=== PATIENT | female | born 1975 | race Caucasian/White ===

== ENCOUNTER 2016-08-28 11:22 | Emergency (ER) | payer OTHER, MEDICAID ==
[2016-08-28] MEDS ORDERED: KETOROLAC TROMETHAMINE 60 MG/2 ML VIAL ONE (12:07)
--- NOTE | 2016-08-28 13:28 | ER NURSING DOCUMENTATION ---
Nurse's Notes [facility] Name:Mónica Rey Age:41 yrs Sex:Female :1975 Arrival Date:08/28/2016 Time:11:22 Bed3 Private MD: Diagnosis:Foreign Body in Vulva - Vagina;Dysmenorrhea Presentation: 08/28 11:31 Acuity: BASIL 3 lp 11:41 Presenting complaint: Patient states: Patient states that she is on her period and that lp her tampon has fallen apart when taking it out several times. Patient is having cramping and pain. Transition of care: Home. 11:41 Method Of Arrival: Private Vehicle lp Triage Assessment: 11:44 General: Appears in no apparent distress, Behavior is appropriate for age. Pain: lp Complains of pain in suprapubic area Pain currently is 6 out of 10 on a pain scale. EENT: No deficits noted. Neuro: No deficits noted. Cardiovascular: No deficits noted. Respiratory: No deficits noted. GI: No deficits noted. : No deficits noted. Derm: No deficits noted. Historical: - Allergies: Vicodin; - Home Meds: 1. None - PMHx: MYOCARDIAL INFARCTION; - PSHx: ; - Tetanus: < 10 years. - Ebola Screening: : Patient negative for fever greater than or equal to 101.5 degrees Fahrenheit, and additional compatible Ebola Virus Disease symptoms. Patient denies exposure to infectious person. Patient denies travel to an Ebola-affected area in the 21 days before illness onset. . - Immunization history: Flu Vaccine < 1 year. - Social history: Smoking status: Patient uses tobacco products, current every day smoker. Screenin:46 Infectious Disease Risk None. Abuse screen: Denies threats or abuse. Denies injuries lp from another. Nutritional screening: No deficits noted. Assessment: 11:45 GI: Abdomen is obese. lp Vital Signs: 11:45 BP 126 / 92; Pulse 108; Resp 16; Temp 97.2(TE); Pulse Ox 96% on R/A; Weight 83.91 kg; lp Height 5 ft. 2 in. (157.48 cm); Pain 6/10; 11:45 Body Mass Index 33.84 (83.91 kg, 157.48 cm) lp ED Course: 11:23 Patient arrived in ED. ds 11:31 Yolanda Serrano, RN is Primary Nurse. lp 11:31 Triage completed. lp 11:38 Anil Linn MD is Attending Physician. cd 11:[address] Linn notified. lp 11:46 Valuables Remains with patient Patient has correct armband on for positive lp identification. Bed in low position. Call light in reach. Side rails up X 1. 12:30 Assist Provider Assist provider with pelvic exam: Set up pelvic tray. Performed by Anil Linn MD Patient tolerated well. Administered Medications: 11:54 Drug: Toradol 60 mg; Route: IM; Site: right deltoid; 12:43 Follow up: Response: Pain is decreased Point of Care Testing: Urine Dip: 12:56 pH: 6.0; ; Specific [place]: 1.010; Ketones: Negative; Glucose: Negative; Protein: lp Negative; Leukocytes: Negative; Nitrite: Negative ; Blood: Moderate (++); Bilirubin: Negative ; Urobilinogen: Normal Outcome: 12:25 Discharge ordered by MD. cd 13:26 Discharged to home ambulatory. lp 13:26 Condition: good 13:26 Instructed on discharge instructions, follow up and referral plans. medication usage. 13:27 Patient left the ED. lp 08/29 14:22 Discharge F/U Call: Unable to reach: no answer st Signatures: Cally Whitley RN RN st Pavlish, Lena, GABINO RN lp Srot, Kylah, Reg Reg Anil Saldivar MD MD [facility], [facility]
--- NOTE | 2016-08-28 13:28 | ER PHYSICIAN DOCUMENTATION ---
Physician Documentation [facility] Name:Mónica Rey Age:41 yrs Sex:Female :1975 Arrival Date:08/28/2016 Time:11:22 Bed3 Private MD: Anil Saavedra Disposition: 08/28/16 12:25 Discharged to Home/Self Care. Impression: Foreign Body in Vulva - Vagina, Dysmenorrhea. - Condition is Good. - Discharge Instructions: DYSMENORRHEA, VAGINAL FOREIGN BODY, Removed (Adult). - Medical Reconciliation form form. - Follow up: Private Physician; When: 7 - 10 days; Reason: Recheck today's complaints, Continuance of care. - Problem is new. - Symptoms have improved. - Notes: Take Ibuprofen 600mg by mouth every 6 hours with food for cramping. Drink 2 - 3 quarts of water every day. HPI: 08/28 11:30 This 41 yrs old Female presents to ER via Private Vehicle with complaints of cd Vaginal Pain and possible retained partial tampon. 11:30 The patient presents with pelvic pain, that is located in/on the suprapubic area, the cd pain does not radiate, the pain is described as crampy, vaginal bleeding that is light. Onset: The symptoms/episode began/occurred acutely, yesterday. Associated signs and symptoms: Pertinent positives: cramping, vaginal bleeding, Pertinent negatives: fever, Abdominal pain or rigors. No rash. Severity of symptoms: At their worst the symptoms were mild, in the emergency department the symptoms are unchanged. Historical: - Allergies: Vicodin; - Home Meds: 1. None - PMHx: MYOCARDIAL INFARCTION; - PSHx: ; - Tetanus: < 10 years. - Ebola Screening: : Patient negative for fever greater than or equal to 101.5 degrees Fahrenheit, and additional compatible Ebola Virus Disease symptoms. Patient denies exposure to infectious person. Patient denies travel to an Ebola-affected area in the 21 days before illness onset. . - Immunization history: Flu Vaccine < 1 year. - Social history: Smoking status: Patient uses tobacco products, current every day smoker. ROS: 11:45 Positive for pelvic pain, vaginal bleeding, Negative for urinary symptoms, burning cd with urination, foul smelling urine, vaginal discharge, missed period. 11:45 Cardiovascular: Negative for chest pain, palpitations, edema and pleuritic pain. cd Respiratory: Negative for shortness of breath, dyspnea on exertion, cough, sputum production, wheezing, hemoptysis and pleuritic chest pain. Abdomen/GI: Negative for abdominal pain, nausea, vomiting, diarrhea, constipation, distension, melena, hematochezia and hematemesis. Back: Negative for injury, pain or muscle spasms. 11:45 Skin: Negative for injury, rash, itching and discoloration. 11:45 Constitutional: Positive for chills, poor PO intake, Negative for fever. 11:45 All other systems are negative. Exam: Cardiovascular: Regular rate and rhythm with a normal S1 and S2. No gallops, murmurs, or rubs. Normal PMI, no JVD. No pulse deficits. Respiratory: Lungs have equal breath sounds bilaterally, clear to auscultation and percussion. No rales, rhonchi or wheezes noted. No increased work of breathing, no retractions or nasal flaring. Back: No spinal tenderness. No costovertebral tenderness. Full range of motion. 11:45 Skin: Warm, dry with normal turgor. Normal color with no rashes, no lesions, and no cd evidence of cellulitis. 11:45 Constitutional: The patient appears alert, awake, non-diaphoretic, non-toxic, well developed, well nourished, anxious, in obvious distress, mildly distressed. 11:45 Abdomen/GI: Inspection: abdomen appears normal, Bowel sounds: normal, Palpation: mild abdominal tenderness, in the suprapubic area, voluntary guarding, is not appreciated, involuntary guarding, is not appreciated. 11:45 : CVA tenderness, is absent, Pelvic Exam: External exam: is normal, Speculum exam: normal findings, no bleeding is noted, no cervicitis, os that is closed, no tissue in cervix is seen, no tissue in vagina is seen, No erythema. No tampons seen. Vital Signs: 11:45 BP 126 / 92; Pulse 108; Resp 16; Temp 97.2(TE); Pulse Ox 96% on R/A; Weight 83.91 kg; lp Height 5 ft. 2 in. (157.48 cm); Pain 6/10; 11:45 Body Mass Index 33.84 (83.91 kg, 157.48 cm) lp MDM: 11:30 Data interpreted: Pulse oximetry: on room air is 96 %. Interpretation: normal. cd Counseling: I had a detailed discussion with the patient and/or guardian regarding: the historical points, exam findings, and any diagnostic results supporting the discharge/admit diagnosis, lab results, the need for outpatient follow up, for a recheck, with the patient's primary care provider, to return to the emergency department if symptoms worsen or persist or if there are any questions or concerns that arise at home. 11:38 Patient medically screened. cd 11:45 Differential diagnosis: cervicitis, ectopic , retained tampon, Toxic Shock cd Syndrome. 12:20 Data reviewed: vital signs, nurses notes, old medical records, lab test result(s), and cd as a result, I will discharge patient. 12:30 Response to treatment: the patient's symptoms have markedly improved after treatment, cd the patient's condition has returned to base line, and as a result, I will discharge patient. 08/28 13:08 Order name: HCG, URINE; Complete Time: 13:11 EDMS 08/28 13:11 Interpretation: Normal. cd 08/28 12:43 Order name: Urine Dip; Complete Time: 12:57 rh Dispensed Medications: 11:54 Drug: Toradol 60 mg; Route: IM; Site: right deltoid; 12:43 Follow up: Response: Pain is decreased rh Point of Care Testing: Urine Dip: 12:56 pH: 6.0; ; Specific [place]: 1.010; Ketones: Negative; Glucose: Negative; Protein: lp Negative; Leukocytes: Negative; Nitrite: Negative ; Blood: Moderate (++); Bilirubin: Negative ; Urobilinogen: Normal Signatures: Yolanda Serrano, RN RN lp Anil Linn MD MD cd Hofsess, Rachel
== END 2016-08-28 13:28 | disposition home or self-care (01) ==
LOC: ER 11:22
DX: T19.2XXA Foreign body in vulva and vagina, initial encounter (principal); N94.6 Dysmenorrhea, unspecified; R68.83 Chills (without fever); F17.210 Nicotine dependence, cigarettes, uncomplicated
CPT/HCPCS: 84703; 96372; 99283; J1885